=== PATIENT | male | born 1950 | race Caucasian/White ===

== ENCOUNTER → 2025-03-07 11:49 | Outpatient (REF) | payer MEDICARE, SELFPAY ==
[2025-03-07 12:29] LABS: Hematocrit 34.6 % (39.0-52.0); Hemoglobin 11.6 g/dL (13.0-18.0); Mean Corp Hgb Conc. 33.5 g/dL (33.0-37.0); Mean Corpuscular Volume 106.8 fL (80.0-94.0); Nucleated Red Blood Cells % 0 % (-); Platelet Count 175 10^3/uL (130-400); Red Cell Dist. Width 12.7 % (11.5-14.5)
[2025-03-07 12:36] LABS: Blood Urea Nitrogen 25 mg/dl (9-20); Calcium 8.7 mg/dl (8.4-10.2); Carbon Dioxide 19 mmol/L (22-30); Chloride 105 mmol/L (98-107); Glucose 137 mg/dl (70-99); Potassium 4.8 mmol/L (3.5-5.1); Sodium 135 mmol/L (135-145); eGFR > 60.00
== END ==
LOC: OLABP 11:49
PROVIDERS: ATTENDING PHYSICIAN Family Medicine
DX: I10 Essential (primary) hypertension (principal); K21.9 Gastro-esophageal reflux disease without esophagitis
CPT/HCPCS: 36415; 80048; 85025

== ENCOUNTER → 2025-03-09 10:26 | Outpatient (REF) | payer MEDICARE, SELFPAY ==
[2025-03-09 11:19] LABS: Hematocrit 30.4 % (39.0-52.0); Hemoglobin 10.2 g/dL (13.0-18.0); Mean Corp Hgb Conc. 33.6 g/dL (33.0-37.0); Mean Corpuscular Volume 109.0 fL (80.0-94.0); Platelet Count 141 10^3/uL (130-400); Red Cell Dist. Width 12.8 % (11.5-14.5)
== END ==
LOC: OLABP 10:26
PROVIDERS: ATTENDING PHYSICIAN Family Medicine
DX: I10 Essential (primary) hypertension (principal); K21.9 Gastro-esophageal reflux disease without esophagitis
CPT/HCPCS: 36415; 85027

== ENCOUNTER → 2025-03-11 15:45 | Outpatient (REF) | payer OTHER, MEDICARE, SELFPAY | LOC: OLABP 15:45 | PROVIDERS: ATTENDING PHYSICIAN Family Medicine | DX: I10 Essential (primary) hypertension (principal); K21.9 Gastro-esophageal reflux disease without esophagitis | CPT/HCPCS: 36415 ==

== ENCOUNTER → 2025-03-12 11:18 | Outpatient (REF) | payer OTHER, MEDICARE, SELFPAY ==
[2025-03-12 13:04] LABS: Vitamin B12 435 pg/ml (239-931)
== END ==
LOC: OLABP 11:18
PROVIDERS: ATTENDING PHYSICIAN Family Medicine
DX: I10 Essential (primary) hypertension (principal); K21.9 Gastro-esophageal reflux disease without esophagitis; R07.89 Other chest pain
CPT/HCPCS: 36415; 82607

== ENCOUNTER → 2025-03-13 11:21 | Outpatient (REF) | payer OTHER, MEDICARE, SELFPAY ==
[2025-03-14 11:49] LABS: Urine Character Slightly Cloudy (Clear)
[2025-03-14 12:09] LABS: Urine Red Blood Cell 0-2 /HPF (0-2); Urine Squamous Cell 0-2 /LPF (Few); Urine White Cell 30-40 /HPF (0-5)
== END ==
LOC: OLABP 11:21
PROVIDERS: ATTENDING PHYSICIAN Family Medicine
DX: I10 Essential (primary) hypertension (principal); K21.9 Gastro-esophageal reflux disease without esophagitis; R31.0 Gross hematuria
CPT/HCPCS: 81003; 81015; 87077; 87086; 87147

== ENCOUNTER → 2025-03-16 10:04 | Outpatient (REF) | payer MEDICARE, OTHER, SELFPAY ==
[2025-03-16 10:35] LABS: Hematocrit 27.7 % (39.0-52.0); Hemoglobin 9.2 g/dL (13.0-18.0); Mean Corp Hgb Conc. 33.2 g/dL (33.0-37.0); Mean Corpuscular Volume 107.8 fL (80.0-94.0); Platelet Count 177 10^3/uL (130-400); Red Cell Dist. Width 12.7 % (11.5-14.5)
== END ==
LOC: OLABPV 10:04
PROVIDERS: ATTENDING PHYSICIAN Family Medicine
DX: I10 Essential (primary) hypertension (principal); K21.9 Gastro-esophageal reflux disease without esophagitis
CPT/HCPCS: 36415; 85027

== ENCOUNTER 2025-07-17 19:12 | Inpatient (IN) | payer MEDICARE, SELFPAY ==
[2025-07-17] VITALS (8 sets, daily range): BP systolic 90–134; BP diastolic 53–82
[2025-07-17 17:33] LABS: Hematocrit 27.8 % (39.0-52.0); Hemoglobin 8.8 g/dL (13.0-18.0); Mean Corp Hgb Conc. 31.7 g/dL (33.0-37.0); Mean Corpuscular Volume 109.9 fL (80.0-94.0); Nucleated Red Blood Cells % 0 % (-); Platelet Count 163 10^3/uL (130-400); Red Cell Dist. Width 15.1 % (11.5-14.5)
[2025-07-17 17:42] LABS: Urine Character Clear (Clear)
--- NOTE | 2025-07-17 17:42 | ED.GENMED ---
History of Present Illness
General
Chief Complaint: Fall
Time Seen by Provider: 07/17/25 16:53
Nursing documentation reviewed up to this point in time: agreed with
History of Present Illness
History of Present Illness:
75-year-old male presents to the ER for evaluation after witnessed fall at his memory care unit. Patient is pleasantly confused and unable to provide any relevant history. As per EMS he allegedly walks with a walker and limited assistance. He
offers no complaints other than his buttock feels sore during time of interview. He does have a significant prior history of a flutter, valvular insufficiency, he is not on any long-term anticoagulation
Past History
Past History
ED Past Medical History: HTN, Valvular disease (Aortic valve replacement mitral valve replacement in) and Other (Anemia, loss of coordination mild cognitive impairment, general muscle weakness)
ED Past Surgical History: Cardiac (Aortic and mitral valve surgery)
Review of Systems
Review of Systems
Allergies reviewed?: Yes
Phy Exam
Physical Exam
Physical Exam:
Patient is awake, alert, appears in no acute distress, head is NCAT, PERRL, EOMI mucous membranes moist, conjunctiva pink, heart regular rate and rhythm without murmurs or ectopy, lungs are clear to auscultation without wheezes rales or rhonchi, no
JVD, abdomen is soft and nontender on palpation, extremities without edema, GCS is 14 due to confusion, moving all extremities symmetrically without focal deficit, bilateral lower legs with multiple areas of excoriation and healing ecchymosis, there
is a superficial abrasion present on the medial aspect of the left great toe with bleeding controlled with direct pressure, pelvis is stable to rock, he has localized pain on palpation over his left sacroiliac joint and there is mild prominence of
the bone in this area, mild grade 1 pressure sore in this area, skin is intact, no other deformities noted on examination of the back
Course
Orders/Labs/Results
Orders:
Orders
07/17/25 14:37
CT Cervical Spine W/o Iv Contr Urgent
Comment:
Reason For Exam: fall
CT Head W/o Iv Contrast Urgent
Comment:
Reason For Exam: fall
07/17/25 16:58
CR Pelvis - 1 Or 2 Views Urgent
Comment:
Reason For Exam: trauma
07/17/25 17:24
Complete Blood Count/With Diff Urgent
Comprehensive Metabolic Panel Urgent
Urinalysis Reflex To Culture Urgent
Date Specimen was Collected: 07/17/25
Time Specimen was Collected: 17:18
Urine Microscopic Reflex Cult Urgent
Urine Culture Urgent
KATIE Source: U
Specimen Description:
Date Specimen was Collected: 07/17/25
Time Specimen was Collected: 17:18
07/17/25 17:47
Electrocardiogram (*1) Urgent
Reason for Study: Fatigue / Weakness
EKG- Treatment ONCE
07/17/25 18:07
CefTRIAXone [Rocephin] 1,000 mg IV NOW STA
07/17/25 18:35
Admit/Transfer Patient As Directed
Co-Sign Provider:
Level of Care: Inpatient admission
Assign to:: Medical/Surgical
Physician / Group: grisel
Diagnosis: uti
Reason for Hospitalization: uti
Expected length of stay greater than two midnights?: Yes
ELOS- Estimated Length of Stay in days: 2
I certify the patient meets the requirements for IP care: Yes
Code Status As Directed
Resuscitation Status: Full Code
PRN Pain Medication Management As Directed
May give lesser potent ordered pain med per pt: Yes
preference::
Protocol:: Medication orders for pain may be administered in a
manner that supports deferring to patient preference
when the pt is:
- Requesting an ordered lesser potent pain medication.
Least to most potent pain medications are defined
as: acetaminophen < NSAID < tramadol < opioids
(morphine, oxycodone, hydromorphone).
- Requesting a lesser dose of the same medication IF
ORDERED.
- Requesting a less intrusive route of administration
if both routes are prescribed by the provider (PO <
IV).
Abnormal Lab Results
07/17/25
17:24
RBC 2.53 L 10^6/uL
(4.70-6.10)
Hgb 8.8 L g/dL
(13.0-18.0)
Hct 27.8 L %
(39.0-52.0)
MCV 109.9 H fL
(80.0-94.0)
MCH 34.8 H pg
(27.0-31.0)
MCHC 31.7 L g/dL
(33.0-37.0)
RDW 15.1 H %
(11.5-14.5)
MPV 11.0 H fL
(7.4-10.4)
Absolute Lymphs (auto) 1.0 L 10^3/uL
(1.2-3.4)
Lymphocytes % 19.1 L %
(20.5-51.1)
Monocytes % 9.4 H %
(1.7-9.3)
BUN 28 H mg/dl
(9-20)
Glucose 106 H mg/dl
(70-99)
Urine Ketones 2+ A
(Negative)
Ur Occult Blood Reflex 1+ A
(Negative)
Leukocyte Esterase Rfl 3+ A
(Negative)
Urine RBC 7-10 A /HPF
(0-2)
Urine WBC (Reflex) 30-40 A /HPF
(0-5)
Urine Bacteria (Reflex) Moderate A
(Negative)
Urine Albumin (Reflex) 2+ A
(Neg - Trace)
07/17/25 17:24
07/17/25 17:24
Kidney function preserved, similar to prior from February 2025. Hemoglobin 8.8 which is slightly less than 9.7 from February 2025, transfusion not indicated. Urinalysis appears contaminated but is concerning for infection.
Vital Signs
Initial and Last Documented VS:
Initial Vital Signs
Temp Pulse Resp BP Pulse Ox
97.6 F 75 18 90/53 98
07/17/25 14:32 07/17/25 14:32 07/17/25 14:32 07/17/25 14:32 07/17/25 14:32
Last Documented Vital Signs
Temp Pulse Resp BP Pulse Ox
97.6 F 65 17 109/58 98
07/17/25 14:32 07/17/25 18:30 07/17/25 18:30 07/17/25 18:17 07/17/25 18:15
MDM/Problems Addressed
Differential Diagnosis Includes:
Differential diagnosis to consider but not limited to intracranial hemorrhage, skull fracture, cervical spine injury, occult infection, lecture light dyscrasia along with other etiologies considered
Chronic conditions affecting care:
Dementia atrial fibrillation, hypertension
*Radiology
Radiology exam reviewed: radiology read reviewed (CT head and cervical spine without acute finding)
*Pulse Oximetry
SaO2: 100
Oxygen Mode of Delivery: Room air
Patient hypoxic: no
*EKG
Interpreted by ED Provider?: Yes (I independently viewed and interpreted twelve-lead EKG showing normal sinus rhythm, rate 66, leftward axis, left anterior fascicular block, no ST elevation, this is a nonspecific EKG without evidence for acute
ischemia, new nonspecific changes compared to prior from 10/12/2013)
*[place] Interpretation
Rate: normal (I independently viewed and interpreted rhythm strip showing normal sinus rhythm, no ectopy)
*Critical Care Note
Total Time (30-74mins, 75-104mins- exclusive of procedures): Not Applicable
Update Note
Update Note:
Patient with stable appearance throughout time in the ER. Patient required full assistance when moving from chair to stretcher after CAT scans had been obtained. This is a significant change compared to [facility] report that patient is
ambulatory with a walker without assistance. Once all test results available, Rocephin is added for possible urinary tract infection. I reviewed full patient presentation with the hospitalist who accepts patient for admission for further treatment
of UTI and assessment of weakness. No evidence for acute traumatic findings today.
ED Attending Note
-
Portions of this chart may have been created with voice recognition software.� Occasional wrong word or��sound alike� substitutions may have occurred due to the inherent limitations of voice recognition software.
Discharge Plan
Departure
Patient Disposition: Admit
Date of Disposition: 07/17/25
Time of Disposition: 18:11
Presentation/result/management discussed w/ accepting MD/DO: Hospitalist
Discharge Problem:
Weakness, Acute UTI, CHI (closed head injury)
Prescriptions:
No Action
atorvastatin 20 mg tablet
20 mg PO HS
clonazepam 0.5 mg tablet
0.5 mg PO BID@899,2099
quetiapine 200 mg tablet
200 mg PO HS
cyanocobalamin (vitamin B-12) [Vitamin B-12] 1,000 mcg tablet
1,000 mcg PO DAILY@0900
carvedilol 3.125 mg tablet
3.125 mg PO BID@899,2099
aspirin 81 mg tablet,chewable
81 mg PO DAILY@0900
folic acid 1 mg tablet
1 mg PO DAILY@0900
sertraline 50 mg tablet
50 mg PO DAILY@0800
quetiapine 50 mg tablet
50 mg PO DAILY@0900
cholecalciferol (vitamin D3) [Vitamin D3] 50 mcg (2,000 unit) capsule
50 mcg PO DAILY@0900
Referrals:
Christiana Cobian DO [Family Provider, General]
Interventions
Interventions:
*Risk Screen - Suicide Last Done: 07/17/25 14:32
*General Assessment Last Done: 07/17/25 14:32
*Neglect/Abuse Screening Last Done: 07/17/25 17:02
*ED COVID-19 Vaccine History Last Done: 07/17/25 14:32
*ED Influenza Vaccine History Last Done: 07/17/25 14:32
ED-Musculoskeletal Assessment Last Done: 07/17/25 17:02
ED- Neurological Assessment Last Done: 07/17/25 17:02
ED-Skin Assessment Last Done: 07/17/25 17:02
Discharge Date and Time
Print Language: CITIZEN OF [place]
[2025-07-17 17:48] LABS: ALT (SGPT) 14 U/L (0-50); AST (SGOT) 26 U/L (17-59); Albumin 3.7 g/dl (3.5-5.0); Alkaline Phosphatase 49 U/L (38-126); Blood Urea Nitrogen 28 mg/dl (9-20); Calcium 8.8 mg/dl (8.4-10.2); Carbon Dioxide 28 mmol/L (22-30); Chloride 104 mmol/L (98-107); Glucose 106 mg/dl (70-99); Potassium 5.0 mmol/L (3.5-5.1); Sodium 136 mmol/L (135-145); Total Protein 6.3 g/dl (6.3-8.2); eGFR > 60.00
[2025-07-17 18:00] LABS: Urine Squamous Cell >30 /LPF (Few)
[2025-07-17 18:01] LABS: Urine White Cell 30-40 /HPF (0-5)
[2025-07-17] MEDS: ROCEPHIN 1000 MG IV (18:20)
--- NOTE | 2025-07-17 18:37 | HPS.HSE ---
Family Physician
-
Family Physician: Christiana Cobian, DO
Chief Complaint
-
fall
History of Present Illness
75-year-old male past medical history of atrial flutter status post ablation, aortic insufficiency status post aortic valve replacement, mitral valve repair, cognitive impairment, nonobstructive CAD, hypertension, anemia, presenting after witnessed
fall at [facility]. He denies any neck pain or injury. Complains of urinary burning and frequency for the past few days. He has been confused for few days he allegedly walks with walker with limited assistance. No complaints apart from butt
feeling sore.
He drinks alcohol occasionally. Denies smoking.
Medical History
Past Medical History
Past Medical History: Reports Other (atrial flutter status post ablation, aortic insufficiency status post aortic valve replacement, mitral valve repair, cognitive impairment, nonobstructive CAD, hypertension, anemia,)
Past Surgical History: Reports None
Social History
Tobacco: Non-smoker
Alcohol: Occasional
Drug: None
Family History
Family History: Not pertinent
Allergies / Home Medications
Allergies reflects when Allergies were last updated in [facility].
Home Medications with original date entered in [facility]
Allergy/Medication List:
Allergies
Allergy/AdvReac Type Severity Reaction Status Date / Time
No Known Allergies Allergy Verified 07/17/25 14:37
Home Medications
acetaminophen 500 mg tablet 1,000 mg PO QPM 06/07/14
aspirin 81 mg tablet,delayed release (Aspir-Low) 81 mg PO DAILY 06/07/14
furosemide 20 mg tablet 20 mg PO DAILY 06/07/14
metoprolol tartrate 25 mg tablet 25 mg PO BID 06/07/14
multivitamin (Daily Vitamin tablet) 1 ea PO DAILY 06/07/14
Review of Systems
-
History Source: Patient
A 12 point ROS was completed and negative except as noted: Yes
Constitutional: Reports No Symptoms
EENT: Reports No Symptoms
Respiratory: Reports No Symptoms
Cardiac: Reports No Symptoms
Abdomen/GI: Reports No Symptoms
: Reports See HPI
Musculoskeletal: Reports No Symptoms
Skin: Reports No Symptoms
Neurological: Reports No Symptoms
Endocrine: Reports No Symptoms
Hematologic/Lymphatic: Reports No Symptoms
Psych: Reports No Symptoms
Physical Exam
Vital Signs
Vital Signs
Temp Pulse Resp BP Pulse Ox
97.6 F 67 21 117/58 100
07/17/25 14:32 07/17/25 17:00 07/17/25 17:00 07/17/25 17:04 07/17/25 17:45
Physical Exam
General: Well Developed, Well Nourished and No Apparent Distress
HEENT: NormoCephalic, Moist mucous membranes and Atraumatic
Respiratory: Clear
Cardiac: S1/S2 and Regular Rhythm; No Murmur or Rub
GI: Soft, Non Tender, Non Distended and Normal Bowel Sounds; No Organomegaly
Rectal: Deferred by Provider
Musculoskeletal: No Clubbing, No Cyanosis and No Edema
Skin: No Rash
Neuro: Nonfocal/grossly intact
Laboratory Results
-
07/17/25 17:24
07/17/25 17:24
Laboratory Results
Total Bilirubin 0.7 mg/dl (0.2-1.3) 07/17/25 17:24
AST 26 U/L (17-59) 07/17/25 17:24
ALT 14 U/L (0-50) 07/17/25 17:24
Alkaline Phosphatase 49 U/L (38-126) 07/17/25 17:24
Data Reviewed
-
Lab Data: Labs Reviewed by me
Old Records: Reviewed
Impression/Plan
-
IMPRESSION:
PLAN:
# Ambulatory dysfunction/fall secondary to UTI
-Patient with urinary symptoms
- Urinalysis shows 30-40 WBC, +3 leukocyte esterase
- Ceftriaxone
- Pelvic x-ray pending
- Patient with neck collar
- Hold Lasix for now
Atrial flutter status post ablation
- Continue metoprolol
Aortic insufficiency status post aortic valve replacement
History of mitral repair
Nonobstructive CAD
Cognitive impairment
Essential hypertension
Chronic anemia
-Hemoglobin stable
Full code
DVT prophylaxis�heparin
Regular diet
[2025-07-17] MEDS: HEPARIN 5000 UNITS SC (21:01)
--- NOTE | 2025-07-17 21:56 | PTCARENOTE ---
Patient arrived to unit via stretcher with dx of UTI. AAOx2-3. Needs redirection with care. Denies pain or discomfort. Bed alarm applied and functioning properly. Oriented to unit. Call padilla within reach.
[2025-07-18] VITALS (7 sets, daily range): BP systolic 93–115; BP diastolic 45–70; PULSE 80; O2SAT 97
[2025-07-18 06:02] LABS: Glucose - Point of Care 120 mg/dl (70-99)
--- NOTE | 2025-07-18 06:13 | W.PN.UPDATE ---
Update Note
Progress Note Update
~ 6 am Asked to evaluate patient for change in mental status. Per RN, patient was talking and answering questions (although not correct answers, patient forgetful) earlier in the shift. At this time patient is awake, not answering questions, non
verbal, patient is moving all extremities, unable to complete NIH as patient not able to follow commands. Vital signs stable, blood glucose 120. 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 Prior Head CT w/o IV contrast on 07/17/25 @
4:55 pm showed No evidence of acute intracranial abnormality.
Ordered repeat Head CT w/o IV contrast d/t change in mental status. [facility] initial read: No acute intracranial findings. Specifically no acute hemorrhage, hydrocephalus, or herniation. No calvarial fracture.
--- NOTE | 2025-07-18 06:22 | PTCARENOTE ---
When performing incontinence change on patient, patient alert and moving but non verbal. SOCIAL WORK ASSISTANT notified. Vitals stable at BP 108/73, Rectal temp 98.9, hr 97, resp 18, pulse ox 96% on room air. Blood Sugar 120. SOCIAL WORK ASSISTANT assessed and ordered Head CT.
Patient transferred to head CT and waiting results.
[2025-07-18 07:31] LABS: Hematocrit 25.7 % (39.0-52.0); Hemoglobin 8.4 g/dL (13.0-18.0); Mean Corp Hgb Conc. 32.7 g/dL (33.0-37.0); Mean Corpuscular Volume 103.2 fL (80.0-94.0); Nucleated Red Blood Cells % 0 % (-); Platelet Count 168 10^3/uL (130-400); Red Cell Dist. Width 14.6 % (11.5-14.5)
[2025-07-18] MEDS: SEROQUEL 50 MG PO (08:05)
[2025-07-18] MEDS: LOW STRENGTH ASPIRIN 81 MG PO (08:08)
[2025-07-18] MEDS: ZOLOFT 50 MG PO (08:09)
[2025-07-18] MEDS: VITAMIN B-12 1000 MCG PO (08:09)
[2025-07-18] MEDS: FOLVITE 1 MG PO (08:09)
[2025-07-18] MEDS: HEPARIN 5000 UNITS SC ×2 (08:10→20:41)
[2025-07-18] MEDS: COREG 3.125 MG PO ×2 (08:11→21:31)
[2025-07-18 08:28] LABS: ALT (SGPT) 13 U/L (0-50); AST (SGOT) 24 U/L (17-59); Albumin 3.4 g/dl (3.5-5.0); Alkaline Phosphatase 53 U/L (38-126); Blood Urea Nitrogen 22 mg/dl (9-20); Calcium 8.5 mg/dl (8.4-10.2); Carbon Dioxide 27 mmol/L (22-30); Chloride 106 mmol/L (98-107); Glucose 96 mg/dl (70-99); Potassium 4.4 mmol/L (3.5-5.1); Sodium 135 mmol/L (135-145); Total Protein 6.0 g/dl (6.3-8.2); eGFR > 60.00
--- NOTE | 2025-07-18 10:46 | W.PN.HOSP.TC ---
Today's Communication/Plan
-
Rocephin pending cultures
monitor mentation
PT/OT
Assessment / Plan
Assessment / Plan
Assessment:
Mechanical fall and ambulatory dysfunction in setting of weakness from UTI
- Trauma workup negative
- PT/OT
UTI
- continue Rocephin, day 2 pending cultures
Atrial flutter status post ablation
- continue metoprolol
Aortic insufficiency status post aortic valve replacement
History of mitral repair
Nonobstructive CAD
- continue ASA/Statin/BB
Cognitive impairment
- lives at [facility] care
- continue Seroquel/Sertraline/Klonopin
Essential hypertension
- continue BB
Chronic anemia
- Hemoglobin stable
DVT ppx: SC Heparin
Code: Full
Anticipated Discharge: > 48 hours
Subjective/Interval History
-
Date of Service: July 18, 2025
s/p Fall and presentation to ER where trauma workup negative
CT head this AM negative
per RN, patient more calm and accepted AM meds
no complaints offered
Objective Data
-
Labs:
Laboratory Results
07/18/25
07:18
WBC 5.3
Hgb 8.4 L
Hct 25.7 L
Plt Count 168
Sodium 135
Potassium 4.4
Chloride 106
Carbon Dioxide 27
BUN 22 H
Creatinine 0.6 L
Glucose 96
Calcium 8.5
Total Bilirubin 0.9
AST 24
ALT 13
Alkaline Phosphatase 53
Vital Signs:
Vital Signs
Temp Pulse Resp BP Pulse Ox
98.8 F 103 20 115/70 93
07/18/25 07:45 07/18/25 08:11 07/18/25 07:45 07/18/25 08:11 07/18/25 07:45
Physical Exam
-
General: No Apparent Distress
HEENT: Normocephalic and Atraumatic
Respiratory: Negative Wheezes
Cardiac: Regular Rhythm and S1/S2
GI: Soft
Genito-urinary: No Costovertebral Tender
Psych: Calm, Confused and Apparent Dementia
Data Reviewed
-
Total Time Spent with Patient (in minutes): 41
Labs: Labs Reviewed by me
[2025-07-18] MEDS: VITAMIN D3 (cholecalciferol) 50 MCG PO (11:32)
--- NOTE | 2025-07-18 11:52 | CM ---
CM reviewed chart, reviewed with Hospitalist.
Patient resides at [facility] ([phone]).
Phone call with [facility] to obtain patients PLOF.
Patient mostly uses WC, can walk with a walker but needs assistance.
Patient current with [facility], will need script upon d/c.
PCP Christiana Cobian, Pharmacy [facility]- update to [employer].
Therapy ordered, will follow for all recommendations.
Plan; return to [facility] likely, will need script for PT/OT
[2025-07-18] MEDS: ROCEPHIN 1000 MG IV (18:13)
[2025-07-18] MEDS: STERILE WATER FOR INJECTION 10 ML IV (18:13)
[2025-07-18] MEDS: SEROQUEL 200 MG PO (21:27)
[2025-07-18] MEDS: LIPITOR 20 MG PO (21:28)
[2025-07-19 07:45] VITALS: BP 103/54
[2025-07-19] MEDS: VITAMIN B-12 1000 MCG PO (08:21)
[2025-07-19] MEDS: ZOLOFT 50 MG PO (08:21)
[2025-07-19] MEDS: FOLVITE 1 MG PO (08:21)
[2025-07-19] MEDS: LOW STRENGTH ASPIRIN 81 MG PO (08:21)
[2025-07-19] MEDS: HEPARIN 5000 UNITS SC ×2 (08:22→19:40)
[2025-07-19] MEDS: SEROQUEL 50 MG PO (08:22)
[2025-07-19] MEDS: VITAMIN D3 (cholecalciferol) 50 MCG PO (08:22)
[2025-07-19] MEDS: COREG 3.125 MG PO ×2 (08:23→20:18)
[2025-07-19 08:39] LABS: Hematocrit 26.4 % (39.0-52.0); Hemoglobin 8.2 g/dL (13.0-18.0); Mean Corp Hgb Conc. 31.1 g/dL (33.0-37.0); Mean Corpuscular Volume 108.6 fL (80.0-94.0); Platelet Count 156 10^3/uL (130-400); Red Cell Dist. Width 14.8 % (11.5-14.5)
[2025-07-19 09:02] LABS: Blood Urea Nitrogen 18 mg/dl (9-20); Calcium 8.5 mg/dl (8.4-10.2); Carbon Dioxide 30 mmol/L (22-30); Chloride 103 mmol/L (98-107); Glucose 88 mg/dl (70-99); Potassium 3.6 mmol/L (3.5-5.1); Sodium 134 mmol/L (135-145); eGFR > 60.00
--- NOTE | 2025-07-19 10:50 | CM ---
CM reviewed chart, reviewed with Hospitalist.
Patient seen bedside asleep.
CM spoke with Forrest from [facility], reviewed therapy notes, confirmed ability to accept patient back.
Requesting script for PT/OT upon d.c.
Forrest reports do not need clinicals at this time, requesting clinicals upon d.c.
Patient will need ambulance transport back to [facility].
CM will continue to follow for all d/c planning needs.
Plan; return to [facility] via ambulance, will need script for PT/OT
--- NOTE | 2025-07-19 14:31 | W.PN.HOSP.TC ---
Today's Communication/Plan
-
await repeat urine culture
IV Rocephin continues
Assessment / Plan
Assessment / Plan
Assessment:
Mechanical fall and ambulatory dysfunction in setting of weakness from UTI
- Trauma workup negative
- PT/OT - return to [facility]
UTI
- continue Rocephin, day 3; initial culture contaminated, repeat now
Atrial flutter status post ablation
- continue metoprolol
Aortic insufficiency status post aortic valve replacement
History of mitral repair
Nonobstructive CAD
- continue ASA/Statin/BB
Cognitive impairment
- lives at [facility] care
- continue Seroquel/Sertraline/Klonopin
Essential hypertension
- continue BB
Chronic anemia
- Hemoglobin stable
DVT ppx: SC Heparin
Code: Full
Anticipated Discharge: 24 - 48 hours
Subjective/Interval History
-
Date of Service: July 19, 2025
no overnight events
at times with confusion consistent with baseline
Objective Data
-
Labs:
Laboratory Results
07/19/25
07:38
WBC 3.5 L
Hgb 8.2 L
Hct 26.4 L
Plt Count 156
Sodium 134 L
Potassium 3.6
Chloride 103
Carbon Dioxide 30
BUN 18
Creatinine 0.6 L
Glucose 88
Calcium 8.5
Vital Signs:
Vital Signs
Temp Pulse Resp BP Pulse Ox
97.3 F 61 18 104/58 98
07/19/25 07:45 07/19/25 08:23 07/19/25 07:45 07/19/25 08:23 07/19/25 13:46
I&O
07/18/25 07/19/25 07/20/25
06:59 06:59 06:59
Intake Total 720 / 720
Output Total 200 / 200 250 / 250
Balance 520 / 520 -250 / -250
Physical Exam
-
General: No Apparent Distress
HEENT: Normocephalic and Atraumatic
Respiratory: Negative Wheezes
Cardiac: Regular Rhythm and S1/S2
GI: Soft
Genito-urinary: No Costovertebral Tender
Neuro: AO x 3
Psych: Calm
Data Reviewed
-
Total Time Spent with Patient (in minutes): 42
Labs: Labs Reviewed by me
[2025-07-19 15:55] VITALS: BP 106/59
[2025-07-19] MEDS: STERILE WATER FOR INJECTION 10 ML IV (17:11)
[2025-07-19] MEDS: ROCEPHIN 1000 MG IV (17:12)
[2025-07-19] MEDS: TYLENOL 650 MG PO (19:44)
[2025-07-19] MEDS: LIPITOR 20 MG PO (21:13)
[2025-07-19] MEDS: SEROQUEL 200 MG PO (21:15)
[2025-07-19 23:00] VITALS: BP 94/52
[2025-07-20 07:45] VITALS: BP 107/59
[2025-07-20 07:55] LABS: Hematocrit 24.3 % (39.0-52.0); Hemoglobin 8.0 g/dL (13.0-18.0); Mean Corp Hgb Conc. 32.9 g/dL (33.0-37.0); Mean Corpuscular Volume 106.6 fL (80.0-94.0); Platelet Count 153 10^3/uL (130-400); Red Cell Dist. Width 14.8 % (11.5-14.5)
[2025-07-20] MEDS: VITAMIN D3 (cholecalciferol) 50 MCG PO (08:12)
[2025-07-20] MEDS: COREG 3.125 MG PO ×2 (08:12→20:01)
[2025-07-20] MEDS: SEROQUEL 50 MG PO (08:12)
[2025-07-20] MEDS: LOW STRENGTH ASPIRIN 81 MG PO (08:12)
[2025-07-20] MEDS: ZOLOFT 50 MG PO (08:12)
[2025-07-20] MEDS: HEPARIN 5000 UNITS SC ×2 (08:13→20:01)
[2025-07-20] MEDS: VITAMIN B-12 1000 MCG PO (08:13)
[2025-07-20] MEDS: FOLVITE 1 MG PO (08:14)
[2025-07-20 08:39] LABS: Blood Urea Nitrogen 19 mg/dl (9-20); Calcium 8.2 mg/dl (8.4-10.2); Carbon Dioxide 30 mmol/L (22-30); Chloride 104 mmol/L (98-107); Glucose 84 mg/dl (70-99); Potassium 3.8 mmol/L (3.5-5.1); Sodium 135 mmol/L (135-145); eGFR > 60.00
--- NOTE | 2025-07-20 10:31 | W.PN.HOSP.TC ---
Today's Communication/Plan
-
CXR and ST eval
Rocephin pending culture
Assessment / Plan
Assessment / Plan
Assessment:
Mechanical fall and ambulatory dysfunction in setting of weakness from UTI
- Trauma workup negative
- PT/OT - return to [facility]
UTI
- continue Rocephin, day 4; initial culture contaminated, repeat urine culture pending
Cough with oral intake
- CXR
- ST Eval
Atrial flutter status post ablation
- continue metoprolol
Aortic insufficiency status post aortic valve replacement
History of mitral repair
Nonobstructive CAD
- continue ASA/Statin/BB
Cognitive impairment
- lives at [facility]
- continue Seroquel/Sertraline/Klonopin
Essential hypertension
- continue BB
Chronic anemia
- Hemoglobin stable
DVT ppx: SC Heparin
Code: Full
Anticipated Discharge: 24 - 48 hours
Subjective/Interval History
-
Date of Service: July 20, 2025
periods of cough with oral intake, also difficulty with straws per nursing
no fevers
Objective Data
-
Labs:
Laboratory Results
07/20/25
07:19
WBC 2.6 L
Hgb 8.0 L
Hct 24.3 L
Plt Count 153
Sodium 135
Potassium 3.8
Chloride 104
Carbon Dioxide 30
BUN 19
Creatinine 0.7
Glucose 84
Calcium 8.2 L
Vital Signs:
Vital Signs
Temp Pulse Resp BP Pulse Ox
97.2 F 59 18 107/59 94
07/20/25 07:45 07/20/25 08:12 07/20/25 07:45 07/20/25 08:12 07/20/25 07:45
I&O
07/19/25 07/20/25 07/21/25
06:59 06:59 06:59
Intake Total 720 / 720 60 / 60
Output Total 200 / 200 250 / 250
Balance 520 / 520 -190 / -190
Physical Exam
-
General: No Apparent Distress
HEENT: Normocephalic and Atraumatic
Respiratory: Negative Wheezes
Cardiac: Regular Rhythm and S1/S2
GI: Soft
Neuro: AO x 3
Psych: Calm
Data Reviewed
-
Total Time Spent with Patient (in minutes): 42
Labs: Labs Reviewed by me
--- NOTE | 2025-07-20 10:47 | PN.CDI ---
CDI
- -
CDI:
Physician Documentation Request
Admit Date: 07/17/25 19:12
Dear Doctor,
Patient admitted for UTI.
Clinical panel nursing documentation wound care
07/18/25
08:00
Pressure injury appearance (Stage 1) [Present on admission Sacrum] Non blanchable
red
Pressure injury stage [Present on admission Sacrum] Stage 1
Surrounding Skin - [Present on admission Sacrum] Dry and intact
Treatment provided [Present on admission Sacrum] Adhesive foam
Physician documentation of the type and location of wounds is required for compliant documentation. Based on the above clinical findings and your assessment, please provide the following in your progress note:
1. Location of the ulcer/wound, including laterality.
2. Type (etiology) of ulcer/wound:
- Diabetic ulcer
- Arterial (ischemic) ulcer
- Traumatic wound
- Venous stasis ulcer
- Pressure (decubitus) ulcer
- Non-healing surgical wound
- Other
- Unable to determine
3. For a non-pressure ulcer, please indicate the depth/severity:
- Limited to the breakdown of skin
- With fat layer exposed
- With necrosis of muscle
- With necrosis of bone
- Other
- Unable to determine
4. If a pressure ulcer, please also include the stage* of the ulcer:
- Stage 1 - Skin intact, non-blanchable redness
- Stage 2 - Partial thickness loss of dermis, includes intact or open blister
- Stage 3 - Full thickness tissue not including bone, tendon or muscle
- Stage 4 - Full thickness tissue loss, including exposed bone, tendon or muscle
- Unstageable - Full thickness loss in which the base of the ulcer is covered by slough (yellow, sanchez, gonzáles, green or brown) and/or eschar (sanchez, brown or black) in the wound bed.
- Unable to determine
Use of terms such as suspected, likely, concern for, or probable (associated with a specific diagnosis that is being evaluated, monitored, or treated as if it exists) are acceptable and can be coded in the inpatient setting, when documented at the
time of discharge.
Thank you,
Lexy Reyes RN, BSN
CDI Specialist
Available via [facility] text
Please use your independent medical judgment in providing your response.
*Source: National Pressure Ulcer Advisory Panel (NPUAP)
[2025-07-20] MEDS: NSS 1000 IV (11:26)
--- NOTE | 2025-07-20 14:02 | PTCARENOTE ---
Patient seen by YARDAGE ESTIMATOR due to coughing with oral intake. Pureed diet with thin liquids recommended; additionally, patient will need supervision during all feed times. Awaiting new orders.
--- NOTE | 2025-07-20 14:56 | PTOTSP ---
Dysphagia Evaluation:
Pt presenting w/ acute (confusion 2/2 UTI) and chronic (cognitive impairment) risk factors for aspiration/dysphagia. Nursing and PCT report coughing w/ solids w/ 07/20 breakfast and lunch. During bedside swallow evaluation, pt impulsive w/ oral
intake, coughing w/ liquid washes after solids, and needed moderate verbal cueing to implement aspiration/dysphagia strategies. 07/[address] negative for acute intracranial abnormality and pt is on room air. Given acute confusion 2/2 UTI and s/sx
of aspiration w/ oral intake on 07/20, it is recommended that pt is placed on IDDSI 4 Puree, Thins w/ FULL supervision and assistance w/ meals. ST to follow.
Recommendations:
1. IDDSI 4 Puree, Thins
2. Medications crushed in puree as able
3. FULL supervision/assistance w/ meals
4. Strategies: Single sips/small bites, slow rate, alternating liquid washes, clear mouth prior to next bite,
5. Oral care completed 3-4x a day
6. ST to F/U to observe diet level tolerance, trial diet level advancements, and determine if instrumental testing warranted to objectively rule out aspiration.
[2025-07-20 15:00] VITALS: BP 100/60
[2025-07-20] MEDS: STERILE WATER FOR INJECTION 10 ML IV (17:32)
[2025-07-20] MEDS: ROCEPHIN 1000 MG IV (17:33)
[2025-07-20] MEDS: LIPITOR 20 MG PO (22:20)
[2025-07-20] MEDS: SEROQUEL 200 MG PO (22:20)
[2025-07-20 23:25] VITALS: BP 116/60
[2025-07-21] MEDS: NSS 1000 IV (04:15)
[2025-07-21 07:00] VITALS: BP 134/62
[2025-07-21 08:19] LABS: Hematocrit 26.6 % (39.0-52.0); Hemoglobin 8.7 g/dL (13.0-18.0); Mean Corp Hgb Conc. 32.7 g/dL (33.0-37.0); Mean Corpuscular Volume 106.4 fL (80.0-94.0); Platelet Count 157 10^3/uL (130-400); Red Cell Dist. Width 14.8 % (11.5-14.5)
[2025-07-21] MEDS: VITAMIN B-12 1000 MCG PO (08:26)
[2025-07-21] MEDS: SEROQUEL 50 MG PO (08:26)
[2025-07-21] MEDS: LOW STRENGTH ASPIRIN 81 MG PO (08:26)
[2025-07-21] MEDS: COREG 3.125 MG PO ×2 (08:26→20:20)
[2025-07-21] MEDS: VITAMIN D3 (cholecalciferol) 50 MCG PO (08:27)
[2025-07-21] MEDS: ZOLOFT 50 MG PO (08:27)
[2025-07-21] MEDS: FOLVITE 1 MG PO (08:27)
[2025-07-21] MEDS: HEPARIN 5000 UNITS SC (08:27)
[2025-07-21] MEDS: ZYPREXA 10 MG IM (08:51)
[2025-07-21] MEDS: STERILE WATER FOR INJECTION 2.1 ML IM (08:51)
--- NOTE | 2025-07-21 08:56 | W.PN.HOSP.TC ---
Today's Communication/Plan
-
DC planning
Assessment / Plan
Assessment / Plan
Assessment:
Mechanical fall and ambulatory dysfunction in setting of weakness from UTI
- Trauma workup negative
- PT/OT - return to [facility]
UTI
- continue Rocephin, day 5/10; initial culture contaminated, repeat urine cultue NGTD. Finish 10 day course empirically
Cough with oral intake
- CXR without pneumonia but vague opacity likely artifact based off f/u CT.
- ST Eval with recommendation of IDDSI 4 diet; ST to be arranged at home.
Atrial flutter status post ablation
- continue metoprolol
Aortic insufficiency status post aortic valve replacement
History of mitral repair
Nonobstructive CAD
- continue ASA/Statin/BB
dementia unknown subtype, with agitated behaviors
[facility]
- prn Zyprexa
- continue Seroquel/Sertraline/Klonopin
Essential hypertension
- continue BB
Chronic anemia
- Hemoglobin stable
Stage 1 pressure injury (sacrum) - present on arrival
DVT ppx: SC Heparin
Code: Full
Dispo: Medically stable for discharge. CM aware.
Anticipated Discharge: Within 24 hours
Subjective/Interval History
-
Date of Service: July 21, 2025
agitated this AM and given Zyprexa with resolution of agitation
resting comfortably
Objective Data
-
Labs:
Laboratory Results
07/21/25
07:34
WBC 3.6 L
Hgb 8.7 L
Hct 26.6 L
Plt Count 157
Sodium Pending
Potassium Pending
Chloride Pending
Carbon Dioxide Pending
BUN Pending
Creatinine Pending
Glucose Pending
Calcium Pending
Vital Signs:
Vital Signs
Temp Pulse Resp BP Pulse Ox
97 F 67 20 134/62 99
07/21/25 07:00 07/21/25 08:26 07/21/25 07:00 07/21/25 08:26 07/21/25 07:00
I&O
07/20/25 07/21/25 07/22/25
06:59 06:59 06:59
Intake Total 60 / 60 1200 / 1200
Output Total 250 / 250
Balance -190 / -190 1200 / 1200
Physical Exam
-
General: No Apparent Distress
HEENT: Normocephalic and Atraumatic
Respiratory: Negative Wheezes
Cardiac: Regular Rhythm and S1/S2
GI: Soft
Psych: Calm
Data Reviewed
-
Total Time Spent with Patient (in minutes): 42
Labs: Labs Reviewed by me
[2025-07-21 09:10] LABS: Blood Urea Nitrogen 17 mg/dl (9-20); Calcium 8.4 mg/dl (8.4-10.2); Carbon Dioxide 26 mmol/L (22-30); Chloride 106 mmol/L (98-107); Glucose 88 mg/dl (70-99); Potassium 3.7 mmol/L (3.5-5.1); Sodium 136 mmol/L (135-145); eGFR > 60.00
--- NOTE | 2025-07-21 09:36 | PTCARENOTE ---
Patient screaming, agitated and yelling out 'Look at me, I'm skin and bones! My father can't afford this! Get me out of this bed!'. Patient is not redirectable. MD notified. 10 mg IM Zyprexa administered for behavior issues in addition to schedule
Klonopin and Serouquel. Patient brought to back nurse's station. Plan to place in room 428 for less disruption.Potential for discharge back to home facility today.
--- NOTE | 2025-07-21 13:15 | CM ---
Addendum entered by Yazmin Leiva 07/21/25 14:37:
Spoke w/ Allie GONZALES, who shared that patient is unable to return at his current functioning level. Allie confirmed patient is mostly w/c bound, however, he can ambulate with a RW. Confirmed that patient was at a rehab facility before but unsure which
facility. Requesting clinicals to be faxed to [phone]
Update to Panchito, confirmed that patient was at [facility] before. Agreeable to additional referrals if [facility] does not accept or have any beds
Referral sent to [facility]. Spoke w/ Kayla/admissions, will review and let CM know if accepted
CHRISTIAN/Allie can be reached at [phone] (mobile). [phone] (office and on weekends)
Original Note:
Chart reviewed. Patient will discharge back to [facility] today
Update to [facility]
Patient will need an ambulance transport, forms faxed to to arrange
Update to /Panchito SANSD. IMM verbally reviewed, copy on chart
PT/OT/ST scripts on chart to send w/ patient
[facility]
Report: [phone]---> ASK FOR A NURSE

Plan: Return to [facility] today
[2025-07-21 15:40] VITALS: BP 127/63
[2025-07-21] MEDS: HEPARIN SC (20:15)
[2025-07-21] MEDS: COREG PO (20:15)
[2025-07-21] MEDS: OMNICEF PO (20:15)
[2025-07-21] MEDS: OMNICEF 300 MG PO (20:19)
[2025-07-21] MEDS: LIPITOR 20 MG PO (21:06)
[2025-07-21] MEDS: SEROQUEL 200 MG PO (21:06)
[2025-07-21 23:45] VITALS: BP 139/76
[2025-07-22 07:49] VITALS: BP 121/56
[2025-07-22] MEDS: HEPARIN 5000 UNITS SC ×2 (08:06→21:43)
[2025-07-22] MEDS: FOLVITE 1 MG PO (08:07)
[2025-07-22] MEDS: LOW STRENGTH ASPIRIN 81 MG PO (08:07)
[2025-07-22] MEDS: OMNICEF 300 MG PO ×2 (08:07→21:39)
[2025-07-22] MEDS: COREG 3.125 MG PO ×2 (08:07→21:39)
[2025-07-22] MEDS: ZOLOFT 50 MG PO (08:07)
[2025-07-22] MEDS: VITAMIN D3 (cholecalciferol) 50 MCG PO (08:08)
[2025-07-22] MEDS: SEROQUEL 50 MG PO (08:08)
[2025-07-22] MEDS: VITAMIN B-12 1000 MCG PO (08:08)
--- NOTE | 2025-07-22 12:39 | W.PN.HOSP.TC ---
Today's Communication/Plan
-
Medically stable for discharge. CM aware. Awaiting SNF placement.
Assessment / Plan
Assessment / Plan
Assessment:
Mechanical fall and ambulatory dysfunction in setting of weakness from UTI
- Trauma workup negative
- PT/OT - SNF vs return to facility but per facility request will pursue SNF
UTI
- continue Cefdinir, day 01/25; initial culture contaminated, repeat urine cultue NGTD. Finish 10 day course empirically
Cough with oral intake
- CXR without pneumonia but vague opacity likely artifact based off f/u CT.
- ST Eval with recommendation of IDDSI 6 diet; ST to be arranged at home.
Atrial flutter status post ablation
- continue metoprolol
Aortic insufficiency status post aortic valve replacement
History of mitral repair
Nonobstructive CAD
- continue ASA/Statin/BB
dementia unknown subtype, with agitated behaviors
- lives [facility]
- prn Zyprexa
- continue Seroquel/Sertraline/Klonopin
Essential hypertension
- continue BB
Chronic anemia
- Hemoglobin stable
Stage 1 pressure injury (sacrum) - present on arrival
DVT ppx: SC Heparin
Code: Full
Dispo: Medically stable for discharge. CM aware. Awaiting SNF placement.
Anticipated Discharge: 24 - 48 hours
Subjective/Interval History
-
Date of Service: July 22, 2025
no periods of agitation overnight
awaiting SNF placement
Objective Data
-
Vital Signs:
Vital Signs
Temp Pulse Resp BP Pulse Ox
97.4 F 65 16 121/56 96
07/22/25 07:49 07/22/25 07:49 07/22/25 07:49 07/22/25 07:49 07/22/25 07:49
I&O
07/21/25 07/22/25 07/23/25
06:59 06:59 06:59
Intake Total 1200 / 1200 120 / 120
Balance 1200 / 1200 120 / 120
Physical Exam
-
General: No Apparent Distress
HEENT: Normocephalic and Atraumatic
Respiratory: Negative Wheezes
Cardiac: Regular Rhythm
GI: Soft
Genito-urinary: No Costovertebral Tender
Neuro: Awake
Psych: Apparent Dementia
Data Reviewed
-
Total Time Spent with Patient (in minutes): 41
Labs: Labs Reviewed by me
[2025-07-22 13:23] VITALS: BMI 17.6
--- NOTE | 2025-07-22 13:31 | CM ---
Addendum entered by Yazmin Leiva 07/22/25 16:04:
Received call from Yoko. Can accept patient at [facility], however, will plan to admit on Friday. Per Yoko, there isn't adequate staff support available over the weekend to admit patient
Updated hospitalist
Updated brother, Panchito
Plan: D/c to [facility] SNF on Friday
Original Note:
[facility] declined patient due to behaviors (yelling, agitation)
Additional referrals sent in [facility] yesterday
CM spoke w/ Yoko/ [facility] admissions, to review referral. CM informed of latest update, patient has been calm so far today, no report of yelling. Per Yoko, will review w/ her team and call CM back
Update to Allie/CHRISTIAN at [facility]
Plan: SNF
[2025-07-22 15:21] VITALS: BP 112/73
--- NOTE | 2025-07-22 15:23 | PN.CDI ---
CDI
- -
CDI:
Physician Documentation Request
Admit Date: 07/17/25 19:12
Dear Doctor,
Patient admitted for fall.
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 Unsure PO intakes prior to admission and weight hx not
available. Due to observations today, pt meeting criteria for moderate protein/calorie malnutrition (ASPEN/AND guidelines, chronic illness).'
Based on the above information and your assessment, which of the following most accurately represents the patient's nutritional status?
Moderate protein calorie malnutrition
Other
[place] Criteria ([facility] Hospitalist 2017)
2 or more criteria must be present for either
non severe or severe malnutrition
Note that the criteria differs related to the
presence of an acute or chronic illness
Acute Illness Chronic Illness
Energy Intake Non Severe: <75% for >7 days Non Severe: <75% for >1 month
Severe: <50% for >5 days Severe: <75% for >1 month
Weight Loss Non Severe: 1-2% over 1 week Non Severe: 5% over 1 month
5% over 1 month 7.5% over 3 months
7.5% over 3 months 10% over 6 months
1 year N/A 20% over 1 year
Severe: >2% over 1 week Severe: >5% over 1 month
>5% over 1 month >7.5% over 3 months
>7.5% over 3 months >10% over 6 months
1 year N/A >20% over 1 year
Body Fat Non Severe: Mild Decrease Non Severe: Mild Loss
Severe: Moderate Decrease Severe: Severe Loss
Muscle Mass Non Severe: Mild Decrease Non Severe: Mild Loss
Severe: Moderate Decrease Severe: Severe Loss
Fluid Accumulation Non Severe: Mild Accumulation Non Severe: Mild Accumulation
Severe: Moderate to severe Severe: Moderate to severe
accumulation accumulation
Reduced Wool Handler Strength Non Severe: N/A Non Severe: N/A
Severe: Measurably reduced Severe: Measurably reduced
Additional criteria that can be used to Determine if Mild or Moderate Malnutrition (Merck Manual 2018)
Mild Moderate Severe
Albumin gm/dl <3.0 gm/dl <2.5 gm/dl <2.0 gm/dl
Pre Albumin mg/dl <15 gm/dl <10 mg/dl <5.0 mg/dl
BMI <18.5 <17 <16
Use of terms such as suspected, likely, concern for, or probable (associated with a specific diagnosis that is being evaluated, monitored, or treated as if it exists) are acceptable and can be coded in the inpatient setting, when documented at the
time of discharge.
Thank you,
Lexy Reyes RN, BSN
CDI Specialist
Available via [place] text
Please use your independent medical judgment in providing your response.
[2025-07-22 16:17] VITALS: BP 97/64; PULSE 64; O2SAT 99
[2025-07-22] MEDS: SEROQUEL 200 MG PO (22:54)
[2025-07-22] MEDS: LIPITOR 20 MG PO (22:54)
[2025-07-22 23:00] VITALS: BP 117/52
[2025-07-23 07:47] VITALS: BP 115/56
[2025-07-23] MEDS: ZOLOFT 50 MG PO (08:24)
[2025-07-23] MEDS: VITAMIN B-12 1000 MCG PO (08:24)
[2025-07-23] MEDS: OMNICEF 300 MG PO ×2 (08:24→20:27)
[2025-07-23] MEDS: SEROQUEL 50 MG PO (08:25)
[2025-07-23] MEDS: LOW STRENGTH ASPIRIN 81 MG PO (08:25)
[2025-07-23] MEDS: VITAMIN D3 (cholecalciferol) 50 MCG PO (08:25)
[2025-07-23] MEDS: COREG 3.125 MG PO ×2 (08:25→20:27)
[2025-07-23] MEDS: FOLVITE 1 MG PO (08:25)
[2025-07-23] MEDS: HEPARIN 5000 UNITS SC ×2 (08:25→20:27)
--- NOTE | 2025-07-23 08:44 | W.PN.HOSP.TC ---
Today's Communication/Plan
-
Medically stable for discharge. CM aware. Awaiting SNF placement - acceppted at [facility] for 07/25 (Friday - earliest date per CM due to staffing issues at [facility]).
Assessment / Plan
Assessment / Plan
Assessment:
Mechanical fall and ambulatory dysfunction in setting of weakness from UTI
- Trauma workup negative
- PT/OT - SNF vs return to facility but per facility request will pursue SNF
UTI
- continue Cefdinir, day 02/21; initial culture contaminated, repeat urine cultue NGTD. Finish 7 day course empirically
Cough with oral intake
- CXR without pneumonia but vague opacity likely artifact based off f/u CT.
- ST Eval with recommendation of IDDSI 6 diet; ST to be arranged at home.
Atrial flutter status post ablation
- continue metoprolol
Aortic insufficiency status post aortic valve replacement
History of mitral repair
Nonobstructive CAD
- continue ASA/Statin/BB
dementia unknown subtype, with agitated behaviors
- [facility]
- prn Zyprexa
- continue Seroquel/Sertraline/Klonopin
Essential hypertension
- continue BB
Chronic anemia
- Hemoglobin stable
Stage 1 pressure injury (sacrum) - present on arrival
Moderate protein calorie malnutrition
DVT ppx: SC Heparin
Code: Full
Dispo: Medically stable for discharge. CM aware. Awaiting SNF placement - acceppted at [facility] for 07/25 (Friday - earliest date per CM due to staffing issues at [facility]).
Anticipated Discharge: > 48 hours
Subjective/Interval History
-
Date of Service: July 23, 2025
resting comfortably, no agitation
Objective Data
-
Vital Signs:
Vital Signs
Temp Pulse Resp BP Pulse Ox
96.2 F L 62 16 117/52 98
07/22/25 23:00 07/22/25 23:00 07/22/25 23:00 07/22/25 23:00 07/22/25 23:00
I&O
07/22/25 07/23/25 07/24/25
06:59 06:59 06:59
Intake Total 120 / 120 480 / 480
Output Total 300 / 300
Balance 120 / 120 180 / 180
Physical Exam
-
General: No Apparent Distress
HEENT: Normocephalic and Atraumatic
Respiratory: Negative Wheezes
Cardiac: Regular Rhythm and S1/S2
GI: Soft and Nontender
Genito-urinary: No Costovertebral Tender
Neuro: Awake and Alert
Psych: Calm and Apparent Dementia
Data Reviewed
-
Total Time Spent with Patient (in minutes): 42
Labs: Labs Reviewed by me
[2025-07-23 15:27] VITALS: BP 115/64
[2025-07-23 20:25] VITALS: BP 123/54
[2025-07-23 23:00] VITALS: BP 119/48
[2025-07-23] MEDS: LIPITOR 20 MG PO (23:03)
[2025-07-23] MEDS: SEROQUEL 200 MG PO (23:03)
[2025-07-24 07:30] VITALS: BP 109/60
[2025-07-24] MEDS: VITAMIN D3 (cholecalciferol) 50 MCG PO (11:00)
[2025-07-24] MEDS: COREG 3.125 MG PO ×2 (11:00→21:03)
[2025-07-24] MEDS: VITAMIN B-12 1000 MCG PO (11:00)
[2025-07-24] MEDS: ZOLOFT 50 MG PO (11:00)
[2025-07-24] MEDS: OMNICEF 300 MG PO (11:00)
[2025-07-24] MEDS: LOW STRENGTH ASPIRIN 81 MG PO (11:00)
[2025-07-24] MEDS: FOLVITE 1 MG PO (11:01)
[2025-07-24] MEDS: SEROQUEL 50 MG PO (11:01)
[2025-07-24] MEDS: HEPARIN 5000 UNITS SC ×2 (11:02→21:02)
--- NOTE | 2025-07-24 12:06 | W.PN.HOSP.TC ---
Today's Communication/Plan
-
Medically stable for discharge. CM aware. Awaiting SNF placement - acceppted at [facility] for 07/25 (Friday - earliest date per CM due to staffing issues at [facility]).
Assessment / Plan
Assessment / Plan
Assessment:
Mechanical fall and ambulatory dysfunction in setting of weakness from UTI
- Trauma workup negative
- PT/OT - SNF vs return to facility but per facility request will pursue SNF
UTI
- completed Cefdinir course; initial culture contaminated, repeat urine culture NGTD
Cough with oral intake
- CXR without pneumonia but vague opacity likely artifact based off f/u CT.
- ST Eval with recommendation of IDDSI 6 diet; ST to be arranged at home.
Atrial flutter status post ablation
- continue metoprolol
Aortic insufficiency status post aortic valve replacement
History of mitral repair
Nonobstructive CAD
- continue ASA/Statin/BB
dementia unknown subtype, with agitated behaviors
- lives [facility]
- prn Zyprexa
- continue Seroquel/Sertraline/Klonopin
Essential hypertension
- continue BB
Chronic anemia
- Hemoglobin stable
Stage 1 pressure injury (sacrum) - present on arrival
Moderate protein calorie malnutrition
DVT ppx: SC Heparin
Code: Full
Dispo: Medically stable for discharge. CM aware. Awaiting SNF placement - acceppted at [facility] for 07/25 (Friday - earliest date per CM due to staffing issues at [facility]).
Anticipated Discharge: Within 24 hours
Subjective/Interval History
-
Date of Service: July 24, 2025
no overnight events
calm, no agitation
Objective Data
-
Vital Signs:
Vital Signs
Temp Pulse Resp BP Pulse Ox
96.4 F L 71 18 109/60 94
07/24/25 07:30 07/24/25 07:30 07/24/25 07:30 07/24/25 07:30 07/24/25 07:30
I&O
07/23/25 07/24/25 07/25/25
06:59 06:59 06:59
Intake Total 480 / 480 650 / 650 480 / 480
Output Total 300 / 300
Balance 180 / 180 650 / 650 480 / 480
Physical Exam
-
General: No Apparent Distress
HEENT: Normocephalic and Atraumatic
Respiratory: Negative Wheezes
Cardiac: Regular Rhythm and S1/S2
GI: Soft
Genito-urinary: No Costovertebral Tender
Neuro: Awake
Psych: Apparent Dementia
Data Reviewed
-
Total Time Spent with Patient (in minutes): 41
Labs: Labs Reviewed by me
[2025-07-24 15:25] VITALS: BP 126/65
[2025-07-24] MEDS: LIPITOR 20 MG PO (21:04)
[2025-07-24] MEDS: SEROQUEL 200 MG PO (21:04)
[2025-07-24 23:19] VITALS: BP 110/64
[2025-07-25 07:40] VITALS: BP 113/62
[2025-07-25 08:58] LABS: Hematocrit 28.6 % (39.0-52.0); Hemoglobin 9.4 g/dL (13.0-18.0); Mean Corp Hgb Conc. 32.9 g/dL (33.0-37.0); Mean Corpuscular Volume 103.2 fL (80.0-94.0); Platelet Count 176 10^3/uL (130-400); Red Cell Dist. Width 14.7 % (11.5-14.5)
[2025-07-25 09:27] LABS: Blood Urea Nitrogen 14 mg/dl (9-20); Calcium 8.6 mg/dl (8.4-10.2); Carbon Dioxide 26 mmol/L (22-30); Chloride 103 mmol/L (98-107); Estimated Creatinine Clearance 69 ml/min; Glucose 78 mg/dl (70-99); Potassium 4.2 mmol/L (3.5-5.1); Sodium 133 mmol/L (135-145); eGFR > 60.00
[2025-07-25] MEDS: VITAMIN B-12 1000 MCG PO (09:36)
[2025-07-25] MEDS: LOW STRENGTH ASPIRIN 81 MG PO (09:36)
[2025-07-25] MEDS: FOLVITE 1 MG PO (09:36)
[2025-07-25] MEDS: COREG 3.125 MG PO (09:36)
[2025-07-25] MEDS: ZOLOFT 50 MG PO (09:37)
[2025-07-25] MEDS: SEROQUEL 50 MG PO (09:37)
[2025-07-25] MEDS: VITAMIN D3 (cholecalciferol) 50 MCG PO (09:37)
[2025-07-25] MEDS: HEPARIN 5000 UNITS SC (09:37)
--- NOTE | 2025-07-25 11:17 | CM ---
Confirmed w/ Yoko/[facility], patient accepted today
Update to patient's brother, Panchito. IMM verbally reviewed, copy on chart
Ambulance transport required, transport forms given to to arrange
[facility]
Report: [phone]

Plan: D/c to [facility] today
--- NOTE | 2025-07-25 13:08 | W.PN.HOSP.TC ---
Today's Communication/Plan
-
Discharge to [facility] today.
Assessment / Plan
Assessment / Plan
Impression:
Patient admitted with mechanical fall and ambulatory dysfunction in the setting of weakness secondary to GI, trauma workup were negative, physical therapy recommending rehab.
Patient completed cefdinir for UTI, initial culture contaminated and repeat culture no growth to date.
Patient also was complaining of coughing but chest x-ray shows no pneumonia.
Seen by speech who recommended IDDSI 6 diet.
Patient to be discharged to rehab once bed available
Assessment/plan:
Mechanical fall and ambulatory dysfunction in setting of weakness from UTI
- Trauma workup negative
- PT/OT - SNF vs return to facility but per facility request will pursue SNF
UTI
- completed Cefdinir course; initial culture contaminated, repeat urine culture NGTD
Cough with oral intake
- CXR without pneumonia but vague opacity likely artifact based off f/u CT.
- ST Eval with recommendation of IDDSI 6 diet; ST to be arranged at home.
Atrial flutter status post ablation
- continue metoprolol
Aortic insufficiency status post aortic valve replacement
History of mitral repair
Nonobstructive CAD
- continue ASA/Statin/BB
dementia unknown subtype, with agitated behaviors
- lives at [facility]
- prn Zyprexa
- continue Seroquel/Sertraline/Klonopin
Essential hypertension
- continue BB
Chronic anemia
- Hemoglobin stable
Stage 1 pressure injury (sacrum) - present on arrival
Moderate protein calorie malnutrition
DVT ppx: SC Heparin
Code: Full
Dispo: c
Total time spent on today's encounter was 52 minutes which included time spent in counseling the patient/family regarding diagnosis and treatment plan as listed above, goals of care, and symptom management. Case was discussed with nursing staff,
specialists, and care coordinators/case management. All labs and imaging personally reviewed by me. Remainder the time spent in detailed review of previous records, lab data, imaging, and other medical provider documentation.
Anticipated Discharge: Today
Subjective/Interval History
-
Date of Service: July 25, 2025
Patient seen and examined at bedside, denies any chest pain or shortness of breath, no abdominal pain, no nausea, no vomiting, no diarrhea or constipation.
Discharge to [facility] today
Objective Data
-
Labs:
Laboratory Results
07/25/25
08:31
WBC 4.1 L
Hgb 9.4 L
Hct 28.6 L
Plt Count 176
Sodium 133 L
Potassium 4.2
Chloride 103
Carbon Dioxide 26
BUN 14
Creatinine 0.5 L
Glucose 78
Calcium 8.6
Vital Signs:
Vital Signs
Temp Pulse Resp BP Pulse Ox
96.2 F L 65 18 113/62 95
07/25/25 07:40 07/25/25 07:40 07/25/25 07:40 07/25/25 07:40 07/25/25 07:40
I&O
07/24/25 07/25/25 07/26/25
06:59 06:59 06:59
Intake Total 650 / 650 680 / 680
Balance 650 / 650 680 / 680
Physical Exam
-
General: Well Developed, Well Nourished, No Apparent Distress and Comfortable
HEENT: Normocephalic, Atraumatic, Moist Mucous Membranes, No Ptosis, PERRLA and Nose Appears Normal
Respiratory: Clear to Auscultation and Non Labored Respirations
Cardiac: Regular Rhythm and S1/S2
Breast: Deferred by me
GI: Soft, Nontender, Nondistended and Normal Bowel Sounds
Genito-urinary: No Costovertebral Tender
Musculoskeletal: No Clubbing, No Cyanosis and No Edema
Skin: Warm
Neuro: Awake, Alert, Oriented, AO x 3 and No Motor Deficits
Psych: Calm
Data Reviewed
-
Diagnostic Radiology: Image personally visualized and interpreted and Report Reviewed by me
CT Scan: Image personally visualized and interpreted and Report Reviewed by me
Ultrasound: Image personally visualized and interpreted and Report Reviewed by me
MRI: Image personally visualized and interpreted and Report Reviewed by me
Medical Tests (Nuc Med, Echo etc): Image personally visualized and interpreted and Report Reviewed by me
Labs: Labs Reviewed by me
Old Records: Reviewed
--- NOTE | 2025-07-25 13:14 | W.DCSUMMARY ---
Discharge Summary
Discharge Data
Date of Admission: 07/17/25
Date of Discharge: 07/25/25
Total time spent discharging patient (in min): 40
-
Pending Results: No
Hospital Course
Hospital course
Patient admitted with mechanical fall and ambulatory dysfunction in the setting of weakness secondary to GI, trauma workup were negative, physical therapy recommending rehab.
Patient completed cefdinir for UTI, initial culture contaminated and repeat culture no growth to date.
Patient also was complaining of coughing but chest x-ray shows no pneumonia.
Seen by speech who recommended IDDSI 6 diet.
Patient to be discharged to rehab once bed available
During hospitalization patient was treated from the following
Mechanical fall and ambulatory dysfunction in setting of weakness from UTI
- Trauma workup negative
- PT/OT - SNF vs return to facility but per facility request will pursue SNF
UTI
- completed Cefdinir course; initial culture contaminated, repeat urine culture NGTD
Cough with oral intake
- CXR without pneumonia but vague opacity likely artifact based off f/u CT.
- ST Eval with recommendation of IDDSI 6 diet; ST to be arranged at home.
Atrial flutter status post ablation
- continue metoprolol
Aortic insufficiency status post aortic valve replacement
History of mitral repair
Nonobstructive CAD
- continue ASA/Statin/BB
dementia unknown subtype, with agitated behaviors
- lives at [facility]
- prn Zyprexa
- continue Seroquel/Sertraline/Klonopin
Essential hypertension
- continue BB
Chronic anemia
- Hemoglobin stable
Stage 1 pressure injury (sacrum) - present on arrival
Moderate protein calorie malnutrition
DVT ppx: SC Heparin
Code: Full
Dispo: Discharge to [facility] today.
Total time spent on today's encounter was 40 minutes which included time spent in counseling the patient/family regarding diagnosis and treatment plan as listed above, goals of care, and symptom management. Case was discussed with nursing staff,
specialists, and care coordinators/case management. All labs and imaging personally reviewed by me. Remainder the time spent in detailed review of previous records, lab data, imaging, and other medical provider documentation.
Anticipated Discharge: Today
Discharge Plan
-
Patient Disposition: Care Home/SNF
Discharge Diagnosis/Procedures: Dementia with agitated behaviors, UTI
Condition: Fair
Diet: As tolerated
Additional Diets: IDDSI 4 puree/thin liquids
Activity: As tolerated
Other Services: PT, OT and ST
Referrals:
Christiana Cobian DO [Family Provider, General]
Prescriptions:
Continued
atorvastatin 20 mg tablet
20 mg PO HS
clonazepam 0.5 mg tablet
0.5 mg PO BID@00,2100
quetiapine 200 mg tablet
200 mg PO HS
cyanocobalamin (vitamin B-12) [Vitamin B-12] 1,000 mcg tablet
1,000 mcg PO DAILY@0900
carvedilol 3.125 mg tablet
3.125 mg PO BID@899,2100
aspirin 81 mg tablet,chewable
81 mg PO DAILY@0900
folic acid 1 mg tablet
1 mg PO DAILY@0900
sertraline 50 mg tablet
50 mg PO DAILY@0800
quetiapine 50 mg tablet
50 mg PO DAILY@0900
cholecalciferol (vitamin D3) [Vitamin D3] 50 mcg (2,000 unit) capsule
50 mcg PO DAILY@0900
Discharge Orders:
Discharge Patient (As Directed); Ordered 07/25/25
Ordered By: Estela Bustamante
Discharge Date and Time
Print Language: PARAGUAYAN
[2025-07-25 14:19] VITALS: BP 104/65
== END 2025-07-25 14:32 | DRG 690 ==
LOC: 4 WEST ACU 19:12
PROVIDERS: Internal Medicine; ADMITTING PHYSICIAN Hospitalist; ATTENDING PHYSICIAN General Practice; EMERGENCY PHYSICIAN Emergency Medicine; FAMILY PHYSICIAN Hospitalist
DX: N39.0 Urinary tract infection, site not specified (principal); I48.92 Unspecified atrial flutter; E44.0 Moderate protein-calorie malnutrition; Z68.1 Body mass index [BMI] 19.9 or less, adult; S09.90XA Unspecified injury of head, initial encounter; W19.XXXA Unspecified fall, initial encounter; I25.10 Atherosclerotic heart disease of native coronary artery without angina pectoris; I10 Essential (primary) hypertension; D64.9 Anemia, unspecified; I35.1 Nonrheumatic aortic (valve) insufficiency; L89.151 Pressure ulcer of sacral region, stage 1; F03.90 Unspecified dementia, unspecified severity, without behavioral disturbance, psychotic disturbance, mood disturbance, and anxiety; Z79.899 Other long term (current) drug therapy; Z95.2 Presence of prosthetic heart valve
CPT/HCPCS: 70450; 71045; 71250; 72125; 72170; 80048; 80053; 81003; 81015; 82962; 85025; 85027; 87070; 87086; 92526; 92610; 93005; 96374; 97163; 97167; 97530; 97535; 99285; J2358